=== PATIENT | female | born 1985 | race American Indian/Alaskan Native ===

== ENCOUNTER 2016-08-25 15:22 | Emergency (ER) | payer SELFPAY ==
--- NOTE | 2016-08-25 15:52 | Emergency Department Report ---
Chief Complaint: Allergic Reaction Stated Complaint: SEVERE ALLERGIC REACTION Time Seen by Provider: 08/25/16 15:48 - HPI History of Present Illness: pt c/o L upper eye lid swelling, nasal congestion and throat irritation since yesterday. pt states she thinks she is having an allergic reaction - ROS Review of Systems: + throat irritation + eye lid pain and swelling - Exam Physical Exam: Pt's R upper eye lid with erythema and edema no airway obstruction, no tonsilar erythema or exudate MSE screening note: Focused history and physical exam performed. Due to findings the following was ordered: ED Disposition for MSE Condition: Stable
[2016-08-25] MEDS ORDERED: TETRACAINE 0.5% OU PRN (20:29)
[2016-08-25] MEDS ORDERED: FUL-GLO OP ONE (20:29)
--- NOTE | 2016-08-25 20:57 | Emergency Department Report ---
ED Eye Problem HPI - General Chief complaint: Skin/Abscess/Foreign Body Stated complaint: SEVERE ALLERGIC REACTION Time Seen by Provider: 08/25/16 15:48 Source: patient Mode of arrival: Ambulatory Limitations: No Limitations - History of Present Illness Initial comments: This is a 30-year-old female well-nourished with nontoxic or ill in appearance that presented to the ED cleaning of left upper eyelid swelling 1 day. Patient states she believes she may have an allergic reaction to an unknown source. Patient also complains of cough or runny nose. Patient stated has been putting warm compressors. Patient denies any trauma, eye pain, crusting, eye discharge, blurry vision, visual changes, headache, stiff neck, fever, chills, CP, or SOB. Patient denies any allergies. Denies PMH. chief complaint: other (left upper eyelid swelling) -: Gradual, days(s) (1) Onset Description: gradual Location: left eye Place: home If Injury: none Severity: mild Consistency: constant Associated Symptoms: none. denies: headache, neck pain, nausea/vomiting, cough , rhinorrhea, fever, shortness of breath - Related Data Home Medications Medication Instructions Recorded Confirmed Last Taken Albuterol Sulfate [Ventolin HFA] 2 puff IH Q4H PRN 10/23/15 10/23/15 Unknown Magnesium Oxide [Mag-Ox] 400 mg PO QDAY 10/23/15 10/23/15 Unknown predniSONE [Deltasone] 20 mg PO QDAY 10/23/15 10/23/15 Unknown Previous Rx's Medication Instructions Recorded Last Taken Type levETIRAcetam [Keppra TAB] 1,000 mg PO BID 30 Days 01/13/14 Unknown Rx Azithromycin(Nf)1% Ophth Soln 1 drops OS QDAY #1 bottle 08/25/16 Unknown Rx [Azasite 1% Ophth Soln] Allergies Allergy/AdvReac Type Severity Reaction Status Date / Time diphenhydramine HCl Allergy Rash Verified 02/23/15 18:37 [From Benadryl] latex Allergy Rash Verified 02/23/15 18:37 Penicillins Allergy Rash Verified 02/23/15 18:37 ED Review of Systems ROS: Stated complaint: SEVERE ALLERGIC REACTION Other details as noted in HPI Constitutional: denies: chills, fever Eyes: denies: eye pain, eye discharge, vision change ENT: denies: ear pain, throat pain Respiratory: denies: cough, shortness of breath, wheezing Cardiovascular: denies: chest pain, palpitations Endocrine: no symptoms reported Gastrointestinal: denies: abdominal pain, nausea, diarrhea Genitourinary: denies: urgency, dysuria, discharge Musculoskeletal: denies: back pain, joint swelling, arthralgia Skin: denies: rash, lesions Neurological: denies: headache, weakness, paresthesias Psychiatric: denies: anxiety, depression Hematological/Lymphatic: denies: easy bleeding, easy bruising ED Past Medical Hx - Past Medical History Previous Medical History?: Yes Hx Diabetes: No Hx Seizures: Yes Hx Asthma: Yes Hx COPD: No Additional medical history: optic neuritis. MS - Social History Smoking Status: Never Smoker Substance Use Type: None - Medications Home Medications: Home Medications Medication Instructions Recorded Confirmed Last Taken Type levETIRAcetam [Keppra TAB] 1,000 mg PO BID 30 Days 01/13/14 10/23/15 Unknown Rx Albuterol Sulfate [Ventolin HFA] 2 puff IH Q4H PRN 10/23/15 10/23/15 Unknown History Magnesium Oxide [Mag-Ox] 400 mg PO QDAY 10/23/15 10/23/15 Unknown History predniSONE [Deltasone] 20 mg PO QDAY 10/23/15 10/23/15 Unknown History Azithromycin(Nf)1% Ophth Soln 1 drops OS QDAY #1 bottle 08/25/16 Unknown Rx [Azasite 1% Ophth Soln] ED Physical Exam - General Limitations: No Limitations General appearance: alert, in no apparent distress - Head Head exam: Present: atraumatic, normocephalic, normal inspection - Eye Eye exam: Present: normal appearance, PERRL, EOMI. Absent: scleral icterus, conjunctival injection, nystagmus, periorbital swelling, periorbital tenderness Pupils: Present: normal accommodation - Expanded Eye Exam Expanded Eyelids: Normal Inspection: Left Pupils: Regular, Round: Left, Reactive: Left Sclera/Conjunctival: Normal Inspection: Left Visual acuity (R) = 20/: 13 Visual acuity (L) = 20/: 13 With correction: No - ENT ENT exam: Present: normal exam, normal orophraynx, mucous membranes moist, TM's normal bilaterally, normal external ear exam - Expanded ENT Exam Expanded Mouth exam: Present: normal external inspection, tongue normal. Absent: drooling, trismus, muffled voice, tongue elevation, laceration Teeth exam: Present: normal inspection Throat exam: Positive: normal inspection. Negative: tonsillar erythema, tonsillomegaly, tonsillar exudate, R peritonsillar mass, L peritonsillar mass - Neck Neck exam: Present: normal inspection, full ROM. Absent: tenderness, meningismus, lymphadenopathy, thyromegaly - Respiratory Respiratory exam: Present: normal lung sounds bilaterally. Absent: respiratory distress, wheezes, rales, rhonchi, stridor, chest wall tenderness, accessory muscle use, decreased breath sounds, prolonged expiratory - Cardiovascular Cardiovascular Exam: Present: regular rate, normal rhythm, normal heart sounds. Absent: bradycardia, tachycardia, irregular rhythm, systolic murmur, diastolic murmur, rubs, gallop - GI/Abdominal GI/Abdominal exam: Present: soft, normal bowel sounds. Absent: distended, tenderness, guarding, rebound, rigid - Rectal Rectal exam: Present: deferred - Extremities Exam Extremities exam: Present: normal inspection, full ROM, normal capillary refill. Absent: tenderness, pedal edema, joint swelling, calf tenderness - Back Exam Back exam: Present: normal inspection, full ROM. Absent: tenderness, CVA tenderness (R), CVA tenderness (L), muscle spasm, paraspinal tenderness, vertebral tenderness, rash noted - Neurological Exam Neurological exam: Present: alert, oriented X3, CN II-XII intact, normal gait, reflexes normal - Psychiatric Psychiatric exam: Present: normal affect, normal mood - Skin Skin exam: Present: warm, dry, intact, normal color. Absent: rash - Other Other exam information: Upon using benavidez lamp, negative for corneal abrasion or foreign body. ED Course Vital Signs 08/25/16 15:48 Temperature 99.8 F H Pulse Rate 98 H Respiratory 18 Rate Blood Pressure 136/98 O2 Sat by Pulse 100 Oximetry - Reevaluation(s) Reevaluation #1: 08/25/16 20:59 Patient is able to speak in full sentences with no signs of distress noted. ED Medical Decision Making - Medical Decision Making ED course; this is a 30-year-old female that presents with left blepharitis 1- patient was examined by myself. Upon using wood lamp, no corneal abrasion or foreign body present. 2- patient received information on blepharitis and patient was instructed to use warm compresses. 3- patient also received azithromycin optic at discharge. 4- patient was referred to screedman/laborer in 3-5 days or if symptoms worsen return to emergency room as soon as possible. 5- at time time of discharge, the patient does not seem toxic or ill in appearance. No acute signs of distress noted. Patient agrees to discharge treatment plan of care. No further questions noted by the patient. Critical care attestation.: If time is entered above; I have spent that time in minutes in the direct care of this critically ill patient, excluding procedure time. ED Disposition Clinical Impression: Blepharitis Qualifiers: Blepharitis type: unspecified type Laterality: left Eyelid: upper Qualified Code(s): H01.004 - Unspecified blepharitis left upper eyelid Disposition: DC-01 TO HOME OR SELFCARE Is pt being admited?: No Does the pt Need Aspirin: No Condition: Stable Instructions: Blepharitis (ED), Azithromycin (Into the eye) Additional Instructions: Use warm compressors as much as possible. follow-up with screedman/laborer in 3-5 days or if symptoms worsen return to emergency room as soon as possible. Take full course of antibiotics as prescribed. Prescriptions: Azithromycin(Nf)1% Ophth Soln [Azasite 1% Ophth Soln] 1 drops OS QDAY #1 bottle Referrals: PRIMARY MD PRATIMA [Primary Care Provider] - 3-5 Days BEST CHEN MD [Referring] - 3-5 Days [facility] [Outside] - 3-5 Days [facility] [Outside] - 3-5 Days Forms: Work/School Release Form(ED)
[2016-08-25] MEDS ORDERED: TETRACAINE 0.5% OU ONE (20:59)
[2016-08-25 22:00] VITALS: BP 135/88
== END 2016-08-25 22:01 | disposition home or self-care (01) ==
LOC: ED 15:22
DX: H01.004 Unspecified blepharitis left upper eyelid (principal); Y92.9 Unspecified place or not applicable; J45.909 Unspecified asthma, uncomplicated
CPT/HCPCS: 99283

== ENCOUNTER 2017-11-30 17:00 | Emergency (ER) | payer MEDICARE ==
[2017-11-30] MEDS ORDERED: PERCOCET 5/325 PO ONE (21:02)
--- NOTE | 2017-11-30 21:04 | Emergency Department Report ---
ED General Adult HPI - General Chief complaint: Pain General Stated complaint: MS FLARE,N/V Time Seen by Provider: 11/30/17 20:51 Source: patient, RN notes reviewed, old records reviewed Mode of arrival: Ambulatory Limitations: Physical Limitation - History of Present Illness Initial comments: This is a 32-year-old female who is known to this provider previously. She is currently transitioning neurology specialist. Past medical history includes multiple sclerosis, and has been documented to have required chronic steroids but also be noncompliant, epilepsy and asthma. Patient resents to the ER with 5 weeks of burning left-sided leg pain, and increased left-sided leg weakness. The symptoms to make going on for 5 weeks. They're constant. Pain increases with palpation and range of motion. They decrease with rest. She reports no bladder or bowel retention or incontinence, denies saddle anesthesia, denies cough, urinary symptoms. Patient describes her pain as burning achy and sharp, reports that it feels somewhat to prior episodes of multiple sclerosis flare and exacerbation. The patient further reports no headache, neck pain, chest pain, abdominal pain, or shortness of breath. Patient reports being seen at [facility] recently, and was given outpatient medications, can't recall what she was given. Of note, patient had MRI of the lumbar spine at this facility last year for similar symptoms, which was essentially unremarkable. -: Gradual, week(s) Location: left, lower extremity Radiation: extremity Quality: burning, stabbing, aching Consistency: constant Improves with: rest Worsens with: medication Associated Symptoms: weakness. denies: confusion, chest pain, cough, diaphoresis, fever/chills, headaches, loss of appetite, malaise, nausea/vomiting , rash, seizure, shortness of breath, syncope - Related Data Home Medications Medication Instructions Recorded Confirmed Last Taken Albuterol Sulfate [Ventolin HFA] 2 puff IH Q4H PRN 10/23/15 12/16/16 Unknown Magnesium Oxide [Mag-Ox] 400 mg PO QDAY 10/23/15 12/16/16 Unknown Previous Rx's Medication Instructions Recorded Last Taken Type Azithromycin(Nf)1% Ophth Soln 1 drops OS QDAY #1 bottle 08/25/16 Unknown Rx [Azasite 1% Ophth Soln] predniSONE [Deltasone] 20 mg PO QDAY #30 12/18/16 12/04/16 Rx predniSONE [Deltasone] 20 mg PO QDAY 30 Days tab 12/18/16 Unknown Rx Acetaminophen [Tylenol Arthritis] 650 mg PO Q6HR PRN #30 tablet.er 11/30/17 Unknown Rx Ibuprofen [Motrin] 600 mg PO Q8H PRN #30 tablet 11/30/17 Unknown Rx levETIRAcetam [Keppra TAB] 1,000 mg PO BID 30 Days #60 tablet 11/30/17 Unknown Rx Allergies Allergy/AdvReac Type Severity Reaction Status Date / Time diphenhydramine HCl Allergy Rash Verified 02/23/15 18:37 [From Benadryl] latex Allergy Rash Verified 02/23/15 18:37 Penicillins Allergy Rash Verified 02/23/15 18:37 ED Review of Systems ROS: Stated complaint: MS FLARE,N/V Other details as noted in HPI Constitutional: malaise. denies: fever Eyes: denies: eye discharge ENT: denies: epistaxis Respiratory: denies: cough Cardiovascular: denies: chest pain Gastrointestinal: denies: abdominal pain Genitourinary: denies: dysuria Musculoskeletal: arthralgia, myalgia. denies: back pain Neurological: weakness, numbness, paresthesias Psychiatric: denies: anxiety ED Past Medical Hx - Past Medical History Hx Diabetes: No Hx Seizures: Yes Hx Asthma: Yes Hx COPD: No Additional medical history: optic neuritis. MS - Social History Smoking Status: Never Smoker Substance Use Type: None - Medications Home Medications: Home Medications Medication Instructions Recorded Confirmed Last Taken Type Albuterol Sulfate [Ventolin HFA] 2 puff IH Q4H PRN 10/23/15 12/16/16 Unknown History Magnesium Oxide [Mag-Ox] 400 mg PO QDAY 10/23/15 12/16/16 Unknown History Azithromycin(Nf)1% Ophth Soln 1 drops OS QDAY #1 bottle 08/25/16 12/16/16 Unknown Rx [Azasite 1% Ophth Soln] predniSONE [Deltasone] 20 mg PO QDAY #30 12/18/16 12/16/16 12/04/16 Rx predniSONE [Deltasone] 20 mg PO QDAY 30 Days tab 12/18/16 Unknown Rx Acetaminophen [Tylenol Arthritis] 650 mg PO Q6HR PRN #30 tablet.er 11/30/17 Unknown Rx Ibuprofen [Motrin] 600 mg PO Q8H PRN #30 tablet 11/30/17 Unknown Rx levETIRAcetam [Keppra TAB] 1,000 mg PO BID 30 Days #60 tablet 11/30/17 Unknown Rx ED Physical Exam - General Limitations: No Limitations General appearance: alert, in no apparent distress - Head Head exam: Present: atraumatic, normocephalic - Eye Eye exam: Present: normal appearance, EOMI. Absent: nystagmus - ENT ENT exam: Present: normal exam, normal orophraynx, mucous membranes moist, normal external ear exam - Neck Neck exam: Present: normal inspection, full ROM - Respiratory Respiratory exam: Present: normal lung sounds bilaterally. Absent: respiratory distress - Cardiovascular Cardiovascular Exam: Present: regular rate, normal rhythm, normal heart sounds. Absent: bradycardia, tachycardia, systolic murmur, diastolic murmur, rubs, gallop - GI/Abdominal GI/Abdominal exam: Present: soft, normal bowel sounds. Absent: distended, tenderness, guarding, rebound, rigid, pulsatile mass - Extremities Exam Extremities exam: Present: normal inspection, full ROM, tenderness, normal capillary refill, other (2+ pulses noted in the bilateral upper, lower extremities. There is no redness, pus, streaking in the upper or lower extremities. The muscular compartments are soft. The left lower extremity is tender in the muscular compartments. A compartments are soft.). Absent: calf tenderness - Back Exam Back exam: Present: normal inspection, full ROM. Absent: tenderness, CVA tenderness (R), paraspinal tenderness, vertebral tenderness - Neurological Exam Neurological exam: Present: alert, oriented X3, abnormal gait (patient walks with a slight limp, but is able to weight-bear), motor sensory deficit (patient has a 3.5/5 strength in the left lower extremity. She has increased pain sensation, and decreased sensation to light touch in the left lower extremity. Reports proprioception is intact in the bilateral lower extremity. 5 out of 5 strength in the bilateral upper extremities and right lower extremity. 2+ quadriceps reflexes noted in the bilateral lower extremities. Downgoing plantar reflexes noted in the bilateral lower extremities) - Psychiatric Psychiatric exam: Present: normal affect, normal mood - Skin Skin exam: Present: warm, dry, intact, normal color. Absent: rash ED Course Vital Signs 11/30/17 11/30/17 17:19 21:18 Temperature 98.7 F 98.3 F Pulse Rate 74 75 Respiratory 16 14 Rate Blood Pressure 159/95 Blood Pressure 133/81 [Left] O2 Sat by Pulse 99 98 Oximetry - Reevaluation(s) Reevaluation #1: 11/30/17 21:12 Differential diagnosis, including but not limited to: Neuropathic pain, myositis , multiple sclerosis flare/exacerbation, urinary tract infection Assessment and plan: 32-year-old female with probable multiple sclerosis flare/ exacerbation. Reports symptoms have been going on for weeks. Her muscular examination physical exam do not suggest compartment syndrome or cellulitis. She has no back pain, and has no bladder or bowel retention, incontinence. Had negative MRI of the lumbar spine last year. We will discuss with neurology contract clerk automobile at [facility]. Reevaluation #2: 11/30/17 21:22 Case is discussed with neurology contract clerk automobile, Dr. Loja. He recommends that since patient's symptoms have been going on for such a long period of time she is not likely to benefit from steroid therapy. I go back to reassess the patient and she is speaking on a cell phone. Patient reports she was at [facility] 2-3 weeks ago, and can't recall a prescription she was given. She further indicates that she didn't get her prescriptions filled. Dr. Loja does not recommend any additional interventions at this time, and recommends outpatient follow-up. Given the patient's symptoms have been going on for weeks, given that she does not require inpatient admission for medical management, the patient will be discharged with instructions to follow up with outpatient neurology. She specifically given the phone number for Dr. Loja's neurology clinic; patient is walking with a slight limp. Reevaluation #3: 11/30/17 21:55 Patient on cellphone. Laboratory studies urinalysis unremarkable. Vital signs stable. Patient will be discharged. ED Medical Decision Making - Lab Data Result diagrams: 11/30/17 21:09 11/30/17 21:09 Vital Signs - 24 hr 11/30/17 17:19 Temperature 98.7 F Pulse Rate 74 Respiratory 16 Rate Blood Pressure 159/95 O2 Sat by Pulse 99 Oximetry Critical care attestation.: If time is entered above; I have spent that time in minutes in the direct care of this critically ill patient, excluding procedure time. ED Disposition Clinical Impression: History of multiple sclerosis Disposition: DC-01 TO HOME OR SELFCARE Is pt being admited?: No Does the pt Need Aspirin: No Condition: Good Additional Instructions: Take the medications as directed. Follow up with a neurologist within the next 7-14 days. Patient may contact the [facility] neurology department at [phone] range outpatient follow-up, or patient may follow-up with any other illicit neurology specialist. Take the pain medications as needed as directed. Return to the ER right away with fevers, chills, lethargy, irritability, projectile vomiting, change in mental status, confusion, inability to tolerate liquid feeds , new, worsening or different weakness. Prescriptions: Acetaminophen [Tylenol Arthritis] 650 mg PO Q6HR PRN #30 tablet.er PRN Reason: Pain Ibuprofen [Motrin] 600 mg PO Q8H PRN #30 tablet PRN Reason: Pain levETIRAcetam [Keppra TAB] 1,000 mg PO BID 30 Days #60 tablet Referrals: HO ANDUJAR MD [Primary Care Provider] - 3-5 Days FLAVIO SILVER MD [Referring] - 3-5 Days MICHAEL VERDUZCO MD [Staff Physician] - 3-5 Days ML MENDOZA MD [Staff Physician] - 3-5 Days
[2017-11-30 21:21] LABS: Hematocrit 41.3 % (30.3-42.9); Hemoglobin 14.1 gm/dl (10.1-14.3); Mean Corpuscular HGB Conc 34 % (30-34); Mean Corpuscular Hemoglobin 32 pg (28-32); Mean Corpuscular Volume 92 fl (79-97); Platelet Count 370 K/mm3 (140-440); Red Blood Count 4.47 M/mm3 (3.65-5.03); Red Cell Distribution Width 12.5 % (13.2-15.2)
[2017-11-30 21:41] LABS: BUN/Creatinine Ratio 23; Blood Urea Nitrogen 14 mg/dL (7-17); Calcium 9.3 mg/dL (8.4-10.2); Hemolysis Index 7
[2017-11-30 21:50] LABS: Bilirubin,Urine NEG (Negative); Blood,Urine NEG (Negative); Color,Urine Yellow (Yellow); Mucus,Urine FEW /HPF; Protein,Urine <15 mg/dL mg/dL (Negative); Urobilinogen,Urine < 2.0 mg/dL (<2.0)
[2017-11-30 22:33] VITALS: BP 126/75
== END 2017-11-30 22:20 | disposition home or self-care (01) ==
LOC: ED 17:00
DX: G35 Multiple sclerosis (principal); J45.909 Unspecified asthma, uncomplicated; G40.909 Epilepsy, unspecified, not intractable, without status epilepticus; Z88.1 Allergy status to other antibiotic agents; Z91.040 Latex allergy status; Z88.0 Allergy status to penicillin
CPT/HCPCS: 36415; 51701; 80048; 81001; 82550; 84702; 85027; 99283

== ENCOUNTER 2018-03-03 08:25 | Emergency (ER) | payer MEDICARE ==
[2018-03-03 08:32] VITALS: BP 137/85
--- NOTE | 2018-03-03 08:50 | Emergency Department Report ---
ED General Adult HPI - General Chief complaint: Upper Respiratory Infection Stated complaint: FLU LIKE Time Seen by Provider: 03/03/18 08:39 Source: patient Mode of arrival: Ambulatory Limitations: No Limitations - History of Present Illness Initial comments: Ms. Lee is a 32 yo female with hx of MS who presents with fever, nausea, nasal congestion, fatigue, productive cough and muscle aches for one week. The diffuse pain is concerning to her for an MS flare. Moderately severe pain. OTC meds did not provided any relief. Neurologist Dr. Moore -: Gradual, week(s) (1) Location: back, upper extremity, lower extremity Severity scale (0 -10): 6 Quality: aching Consistency: constant Improves with: none Worsens with: none Associated Symptoms: cough, fever/chills, malaise - Related Data Home Medications Medication Instructions Recorded Confirmed Last Taken Albuterol Sulfate [Ventolin HFA] 2 puff IH Q4H PRN 10/23/15 12/16/16 Unknown Magnesium Oxide [Mag-Ox] 400 mg PO QDAY 10/23/15 12/16/16 Unknown Previous Rx's Medication Instructions Recorded Last Taken Type Azithromycin(Nf)1% Ophth Soln 1 drops OS QDAY #1 bottle 08/25/16 Unknown Rx [Azasite 1% Ophth Soln] predniSONE [Deltasone] 20 mg PO QDAY #30 12/18/16 12/04/16 Rx predniSONE [Deltasone] 20 mg PO QDAY 30 Days tab 12/18/16 Unknown Rx Acetaminophen [Tylenol Arthritis] 650 mg PO Q6HR PRN #30 tablet.er 11/30/17 Unknown Rx Ibuprofen [Motrin] 600 mg PO Q8H PRN #30 tablet 11/30/17 Unknown Rx levETIRAcetam [Keppra TAB] 1,000 mg PO BID 30 Days #60 tablet 11/30/17 Unknown Rx Acetaminophen/Codeine [Tylenol 1 tab PO Q6H PRN #24 tab 12/29/17 Unknown Rx /Codeine # 3 tab] Ondansetron [Zofran Odt] 4 mg PO Q6HR PRN #12 tab.rapdis 12/29/17 Unknown Rx Acetaminophen/Codeine [Tylenol 2 tab PO Q6H PRN #16 tab 03/03/18 Unknown Rx /Codeine # 3 tab] Azithromycin [Zithromax Z-MARIO] 250 mg PO DAILY #6 tablet 03/03/18 Unknown Rx Allergies Allergy/AdvReac Type Severity Reaction Status Date / Time diphenhydramine HCl Allergy Rash Verified 03/03/18 08:29 [From Benadryl] latex Allergy Rash Verified 03/03/18 08:29 Penicillins Allergy Rash Verified 03/03/18 08:29 ED Review of Systems ROS: Stated complaint: FLU LIKE Other details as noted in HPI Comment: All other systems reviewed and negative Constitutional: chills, fever, malaise ENT: congestion Respiratory: cough ED Past Medical Hx - Past Medical History Previous Medical History?: Yes Hx Diabetes: No Hx Seizures: Yes Hx Asthma: Yes Hx COPD: No Additional medical history: optic neuritis. MS - Social History Smoking Status: Never Smoker Substance Use Type: None - Medications Home Medications: Home Medications Medication Instructions Recorded Confirmed Last Taken Type Albuterol Sulfate [Ventolin HFA] 2 puff IH Q4H PRN 10/23/15 12/16/16 Unknown History Magnesium Oxide [Mag-Ox] 400 mg PO QDAY 10/23/15 12/16/16 Unknown History Azithromycin(Nf)1% Ophth Soln 1 drops OS QDAY #1 bottle 08/25/16 12/16/16 Unknown Rx [Azasite 1% Ophth Soln] predniSONE [Deltasone] 20 mg PO QDAY #30 12/18/16 12/16/16 12/04/16 Rx predniSONE [Deltasone] 20 mg PO QDAY 30 Days tab 12/18/16 Unknown Rx Acetaminophen [Tylenol Arthritis] 650 mg PO Q6HR PRN #30 tablet.er 11/30/17 Unknown Rx Ibuprofen [Motrin] 600 mg PO Q8H PRN #30 tablet 11/30/17 Unknown Rx levETIRAcetam [Keppra TAB] 1,000 mg PO BID 30 Days #60 tablet 11/30/17 Unknown Rx Acetaminophen/Codeine [Tylenol 1 tab PO Q6H PRN #24 tab 12/29/17 Unknown Rx /Codeine # 3 tab] Ondansetron [Zofran Odt] 4 mg PO Q6HR PRN #12 tab.rapdis 12/29/17 Unknown Rx Acetaminophen/Codeine [Tylenol 2 tab PO Q6H PRN #16 tab 03/03/18 Unknown Rx /Codeine # 3 tab] Azithromycin [Zithromax Z-MARIO] 250 mg PO DAILY #6 tablet 03/03/18 Unknown Rx ED Physical Exam - General Limitations: No Limitations General appearance: alert, in no apparent distress - Head Head exam: Present: atraumatic, normocephalic - Eye Eye exam: Present: normal appearance - ENT ENT exam: Present: normal orophraynx, mucous membranes moist, other (nasal congestion) - Neck Neck exam: Present: normal inspection - Respiratory Respiratory exam: Present: normal lung sounds bilaterally. Absent: respiratory distress, wheezes, rales, rhonchi - Cardiovascular Cardiovascular Exam: Present: regular rate, normal rhythm. Absent: systolic murmur, diastolic murmur, rubs, gallop - GI/Abdominal GI/Abdominal exam: Present: soft, normal bowel sounds. Absent: distended, tenderness, guarding, rebound - Extremities Exam Extremities exam: Present: normal inspection - Back Exam Back exam: Present: normal inspection - Neurological Exam Neurological exam: Present: alert, oriented X3 - Psychiatric Psychiatric exam: Present: normal affect, normal mood - Skin Skin exam: Present: warm, dry, intact, normal color. Absent: rash ED Course Vital Signs 03/03/18 08:29 Temperature 97.6 F Pulse Rate 101 H Respiratory 20 Rate Blood Pressure 137/85 O2 Sat by Pulse 97 Oximetry ED Medical Decision Making - Medical Decision Making Dx: influenza, tamiflu not indicated considering duration of symptoms. Due to productive cough, hx os asthma and MS, I feel she would benefit from course of antibiotics, RX: azithromycin and tylenol #3 She will see her neurologist Dr. Moore today. Critical care attestation.: If time is entered above; I have spent that time in minutes in the direct care of this critically ill patient, excluding procedure time. ED Disposition Clinical Impression: Influenza Disposition: DC-01 TO HOME OR SELFCARE Is pt being admited?: No Does the pt Need Aspirin: No Condition: Stable Instructions: Influenza (ED) Prescriptions: Acetaminophen/Codeine [Tylenol /Codeine # 3 tab] 2 tab PO Q6H PRN #16 tab PRN Reason: pain or cough Azithromycin [Zithromax Z-MARIO] 250 mg PO DAILY #6 tablet
== END 2018-03-03 09:03 | disposition home or self-care (01) ==
LOC: ED 08:25
DX: J11.1 Influenza due to unidentified influenza virus with other respiratory manifestations (principal)
CPT/HCPCS: 99282

== ENCOUNTER 2018-06-09 09:43 | Emergency (ER) | payer MEDICARE ==
[2018-06-09] MEDS ORDERED: NACL 0.9% 1000 ML 1,000 ML IV ONE (10:12)
[2018-06-09] MEDS ORDERED: ZOFRAN IV ONE (10:12)
[2018-06-09 10:33] LABS: Basophils % (Auto) 0.1 % (0.0-1.8); Eosinophils % (Auto) 0.2 % (0.0-4.3); Hematocrit 41.5 % (30.3-42.9); Hemoglobin 14.8 gm/dl (10.1-14.3); Lymphocytes # (Auto) 0.6 K/mm3 (1.2-5.4); Lymphocytes % (Auto) 8.8 % (13.4-35.0); Mean Corpuscular HGB Conc 36 % (30-34); Mean Corpuscular Volume 92 fl (79-97); Monocytes # (Auto) 0.4 K/mm3 (0.0-0.8); Monocytes % (Auto) 5.8 % (0.0-7.3); Platelet Count 292 K/mm3 (140-440); Red Blood Count 4.53 M/mm3 (3.65-5.03); Red Cell Distribution Width 12.4 % (13.2-15.2)
--- NOTE | 2018-06-09 11:02 | Emergency Department Report ---
Vomiting/Diarrhea - HPI Chief Complaint: Nausea/Vomiting/Diarrhea Stated Complaint: VOMITING/DIARRHEA/ABD PAIN Time Seen by Provider: 06/09/18 10:12 Duration: 4 Days Severity: mild Nausea/Vomiting Severity: Mild Diarrhea Severity: Mild Pain Severity: Mild Symptoms: Yes Watery Diarrhea, Yes Able to Tolerate Fluids, No Bloody diarrhea, No Fever, No Recent Unusual Foods, No Recent Untreated Water, No Recent use of Antibiotics, No Family w/ Similar Symptoms, No Contacts w/ Similar Symptoms, No Rash, No Hematuria, No Recent URI Symptoms Other History: Patient is a 32-year-old female presents to the ER with a 4 day history of nausea vomiting diarrhea. She has a history of MS. She sees the [facility]. She is on Keppra, prednisone and another medication that she does not recall the name of. Patient is ambulatory to the ER. She has a implant for control. ED Review of Systems ROS: Stated complaint: VOMITING/DIARRHEA/ABD PAIN Other details as noted in HPI Comment: All other systems reviewed and negative ED Past Medical Hx - Past Medical History Previous Medical History?: Yes Hx Diabetes: No Hx Seizures: Yes Hx Asthma: Yes Hx COPD: No Additional medical history: optic neuritis. MS - Surgical History Past Surgical History?: No - Family History Family history: no significant - Social History Smoking Status: Never Smoker Substance Use Type: None - Medications Home Medications: Home Medications Medication Instructions Recorded Confirmed Last Taken Type levETIRAcetam [Keppra TAB] 1,000 mg PO BID 30 Days #60 tablet 11/30/17 Unknown Rx Ondansetron [Zofran Odt] 4 mg PO Q8HR PRN #10 tab.rapdis 06/09/18 Unknown Rx Vomiting Diarrhea Exam - Exam General: Vital signs noted. No distress. Alert and acting appropriately. HEENT: Yes Moist Mucous Membranes, No Pharyngeal Erythema, No Pharyngeal Exudates, No Rhinorrhea, No Conjuctival Injection, No Frontal Tenderness, No Maxillary Tenderness Neck: No Adenopathy, No Rigidity Lungs: Yes Clear Lung Sounds, Yes Good Air Exchange, No Wheezes, No Stridor, No Cough, No Nasal Flaring, No Retractions, No Use of Accessory Muscles Heart exam: Regular: Yes, Murmur: No, Tachycardia: No Abdomen: Tenderness: No, Peritoneal Signs: No, Distention: No, Hyperactive Bowel sounds: No Skin exam: Rash: No, Edema: No, Normal turgor: Yes Neurologic: Alert and oriented, no deficits. Musculoskeletal: Unremarkable. ED Course Vital Signs 06/09/18 06/09/18 09:54 10:19 Temperature 98.1 F Pulse Rate 95 H Respiratory 16 15 Rate Blood Pressure 134/83 O2 Sat by Pulse 98 Oximetry ED Medical Decision Making - Lab Data Result diagrams: 06/09/18 10:18 06/09/18 10:18 - Radiology Data Radiology results: report reviewed, image reviewed - Medical Decision Making labs noted ua noted tbili inc RUQ us noted given pts history vss taking po and ambulatory on discharge from ER. 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 Vital Signs 06/09/18 06/09/18 09:54 10:19 Temperature 98.1 F Pulse Rate 95 H Respiratory 16 15 Rate Blood Pressure 134/83 O2 Sat by Pulse 98 Oximetry Labs 06/09/18 06/09/18 06/09/18 10:18 10:18 10:18 WBC 6.5 RBC 4.53 Hgb 14.8 H Hct 41.5 MCV 92 MCH 33 H MCHC 36 H RDW 12.4 L Plt Count 292 Lymph % (Auto) 8.8 L Titus % (Auto) 5.8 Eos % (Auto) 0.2 Baso % (Auto) 0.1 Lymph # 0.6 L Titus # 0.4 Eos # 0.0 Baso # 0.0 Seg Neutrophils % 85.1 H Seg Neutrophils # 5.6 Sodium 137 Potassium 4.6 Chloride 98.9 Carbon Dioxide 27 Anion Gap 16 BUN 13 Creatinine 0.8 Estimated GFR > 60 BUN/Creatinine Ratio 16 Glucose 101 H Calcium 9.4 Total Bilirubin 1.60 H AST 13 ALT 14 Alkaline Phosphatase 61 Total Protein 6.7 Albumin 4.3 Albumin/Globulin Ratio 1.8 Lipase 18 Urine Color Urine Turbidity Urine pH Ur Specific Galva Urine Protein Urine Glucose (UA) Urine Ketones Urine Blood Urine Nitrite Urine Bilirubin Urine Urobilinogen Ur Leukocyte Esterase Urine WBC (Auto) Urine RBC (Auto) U Epithel Cells (Auto) Urine Mucus Urine HCG, Qual 06/09/18 11:58 WBC RBC Hgb Hct MCV MCH MCHC RDW Plt Count Lymph % (Auto) Titus % (Auto) Eos % (Auto) Baso % (Auto) Lymph # Titus # Eos # Baso # Seg Neutrophils % Seg Neutrophils # Sodium Potassium Chloride Carbon Dioxide Anion Gap BUN Creatinine Estimated GFR BUN/Creatinine Ratio Glucose Calcium Total Bilirubin AST ALT Alkaline Phosphatase Total Protein Albumin Albumin/Globulin Ratio Lipase Urine Color Yellow Urine Turbidity Slightly-cloudy Urine pH 6.0 Ur Specific Galva 1.028 Urine Protein <15 mg/dl Urine Glucose (UA) Neg Urine Ketones Neg Urine Blood Neg Urine Nitrite Neg Urine Bilirubin Neg Urine Urobilinogen 2.0 Ur Leukocyte Esterase Neg Urine WBC (Auto) 1.0 Urine RBC (Auto) 2.0 U Epithel Cells (Auto) 6.0 Urine Mucus 2+ Urine HCG, Qual Negative Critical care attestation.: If time is entered above; I have spent that time in minutes in the direct care of this critically ill patient, excluding procedure time. ED Disposition Clinical Impression: Gastroenteritis, Multiple sclerosis Disposition: DC- TO HOME OR SELFCARE Is pt being admited?: No Does the pt Need Aspirin: No Condition: Stable Instructions: Gastroenteritis (ED) Additional Instructions: DIET TOLERATED MEDS ORDERED TODAY IN ER FOLLOW INSTRUCTIONS ON THE BOTTLE FOLLOW UP PCP WITHIN 48 HOURS TO ENSURE YOU ARE GETTING BETTER ACTIVITY TOLERATED MOTRIN OR TYLENOL FOR PAIN OR FEVER RETURN TO THE ER FOR WORSENING SYMPTOMS NOT RELIEVED BY YOUR MEDICATIONS. FOLLOW UP WITH NEURO IN AM Prescriptions: Ondansetron [Zofran Odt] 4 mg PO Q8HR PRN #10 tab.rapdis PRN Reason: Vomiting Referrals: PRIMARY CARE, [Primary Care Provider] - 3-5 Days Time of Disposition: 11:27
[2018-06-09 11:13] LABS: Alanine Aminotransferase 14 units/L (7-56); Albumin 4.3 g/dL (3.9-5); BUN/Creatinine Ratio 16; Blood Urea Nitrogen 13 mg/dL (7-17); Calcium 9.4 mg/dL (8.4-10.2); Hemolysis Index 6
[2018-06-09 12:38] LABS: Bilirubin,Urine NEG (Negative); Blood,Urine NEG (Negative); Color,Urine Yellow (Yellow); Mucus,Urine 2+ /HPF; Protein,Urine <15 mg/dL mg/dL (Negative)
[2018-06-09 12:42] LABS: HCG Qualitative,Urine Negative (Negative)
--- NOTE | 2018-06-09 14:22 | Ultrasound Report ---
ULTRASOUND ABDOMEN LIMITED INDICATION: Nausea and vomiting. COMPARISON: None similar. FINDINGS: Right upper quadrant ultrasound demonstrates unremarkable liver. No gallstones or pericholecystic fluid. Gallbladder wall thickness is 1.3 mm. Negative sonographic Mitchell's sign. Common bile duct is 1.4 mm. Imaged pancreas, nonaneurysmal abdominal aorta and IVC within normal limits. Nonhydronephrotic 11 x 5 x 5.3 cm right kidney with cortical thickness of 1.5 cm. Top normal/borderline increased renal cortical echogenicity not excluded. CONCLUSION: No acute right upper quadrant abnormality with subtle underlying medical renal disease not entirely excluded sonographically in an appropriate setting, as described. Please correlate. Thank you for the opportunity to participate in this patient's care.
[2018-06-09 15:00] VITALS: BP 129/78
== END 2018-06-09 14:58 | disposition home or self-care (01) ==
LOC: ED 09:43
DX: K52.9 Noninfective gastroenteritis and colitis, unspecified (principal); G35 Multiple sclerosis; J45.909 Unspecified asthma, uncomplicated; Z88.0 Allergy status to penicillin; Z88.8 Allergy status to other drugs, medicaments and biological substances; Z91.040 Latex allergy status
CPT/HCPCS: 36415; 76705; 80053; 81001; 81025; 83690; 85025; 96361; 96374; 99284; J2405; J7030

== ENCOUNTER 2018-08-23 09:46 | Emergency (ER) | payer MEDICARE ==
--- NOTE | 2018-08-23 10:32 | Event Note ---
ED Screening Note ED Screening Note: Pt of Dr Henson she saw him last month he ordered MRI because of something on exam- shes waiting for appnt date she was referred to [facility] and is waiting for that referral Last flare 11/26- hosp 8 days PMH MS OPTIC NEURITIS ASTHMA SZ FROM MS this is pts usual MS flare. co leg pain and tremor rue. LMP- implant, does not have menses rx prednisone and keppra--she is taking these OFF her MS med (cant recall name) and IV solumedrol that RN comes to give her--- last had in 03/30 This initial assessment/diagnostic orders/clinical plan/treatment(s) is/are subject to change based on patients health status, clinical progression and re- assessment by fellow clinical providers in the ED. Further treatment and workup at subsequent clinical providers discretion. Patient/guardian urged not to elope from the ED as their condition may be serious if not clinically assessed and managed. Initial orders include: LABS UA/PREG TO MAIN ED
[2018-08-23 10:55] LABS: Hematocrit 40.6 % (30.3-42.9); Hemoglobin 14.2 gm/dl (10.1-14.3); Mean Corpuscular HGB Conc 35 % (30-34); Mean Corpuscular Volume 92 fl (79-97); Platelet Count 306 K/mm3 (140-440); Red Blood Count 4.42 M/mm3 (3.65-5.03); Red Cell Distribution Width 12.4 % (13.2-15.2)
[2018-08-23] MEDS ORDERED: SOLU-Medrol IV ONE (10:56)
[2018-08-23] MEDS ORDERED: NACL 0.9% 1000 ML 1,000 ML IV ONE (10:56)
[2018-08-23] MEDS ORDERED: MORPHINE IV ONE (10:56)
--- NOTE | 2018-08-23 11:07 | Emergency Department Report ---
ED General Adult HPI - General Chief complaint: Weakness Stated complaint: LEGS PAIN/THROAT SORE/PAIN Time Seen by Provider: 08/23/18 10:41 Source: patient Mode of arrival: Ambulatory Limitations: No Limitations - History of Present Illness Initial comments: 32-year-old female presents to ED with suspected exacerbation of multiple sclerosis. Patient reports pain to bilateral legs 2 days. Patient states this is consistent with her usual MS flare. She reports pain to the bottom of her feet with walking. Patient also says she awoke this morning with a sore throat. Denies fever, cough. -: days(s) (3) Location: left, right, lower extremity Quality: aching Consistency: constant Improves with: none Worsens with: movement Associated Symptoms: malaise. denies: chest pain, cough, fever/chills, nausea/vomiting - Related Data Previous Rx's Medication Instructions Recorded Last Taken Type levETIRAcetam [Keppra TAB] 1,000 mg PO BID 30 Days #60 tablet 11/30/17 Unknown Rx Naproxen [Naprosyn] 500 mg PO BID #20 tablet 08/23/18 Unknown Rx oxyCODONE /ACETAMINOPHEN [Percocet 1 tab PO Q6HR PRN #10 tablet 08/23/18 Unknown Rx 5/325] predniSONE [Deltasone] 50 mg PO QDAY #5 tab 08/23/18 Unknown Rx Allergies Allergy/AdvReac Type Severity Reaction Status Date / Time diphenhydramine HCl Allergy Rash Verified 03/03/18 08:29 [From Benadryl] latex Allergy Rash Verified 03/03/18 08:29 Penicillins Allergy Rash Verified 03/03/18 08:29 ED Review of Systems ROS: Stated complaint: LEGS PAIN/THROAT SORE/PAIN Other details as noted in HPI Comment: All other systems reviewed and negative Constitutional: denies: fever ENT: throat pain Respiratory: denies: cough Cardiovascular: denies: chest pain Gastrointestinal: denies: nausea, vomiting Musculoskeletal: as per HPI Neurological: denies: headache ED Past Medical Hx - Past Medical History Previous Medical History?: Yes Hx Diabetes: No Hx Seizures: Yes Hx Asthma: Yes Hx COPD: No Additional medical history: optic neuritis. MS - Surgical History Past Surgical History?: No - Social History Smoking Status: Never Smoker Substance Use Type: None - Medications Home Medications: Home Medications Medication Instructions Recorded Confirmed Last Taken Type levETIRAcetam [Keppra TAB] 1,000 mg PO BID 30 Days #60 tablet 11/30/17 Unknown Rx Naproxen [Naprosyn] 500 mg PO BID #20 tablet 08/23/18 Unknown Rx oxyCODONE /ACETAMINOPHEN [Percocet 1 tab PO Q6HR PRN #10 tablet 08/23/18 Unknown Rx 5/325] predniSONE [Deltasone] 50 mg PO QDAY #5 tab 08/23/18 Unknown Rx ED Physical Exam - General Limitations: No Limitations General appearance: alert, in no apparent distress - Head Head exam: Present: atraumatic, normocephalic - Eye Eye exam: Present: normal appearance, PERRL, EOMI - ENT ENT exam: Present: normal orophraynx, mucous membranes moist - Neck Neck exam: Present: normal inspection. Absent: tenderness - Respiratory Respiratory exam: Present: normal lung sounds bilaterally. Absent: respiratory distress - Cardiovascular Cardiovascular Exam: Present: regular rate, normal rhythm - GI/Abdominal GI/Abdominal exam: Present: soft. Absent: distended, tenderness - Extremities Exam Extremities exam: Present: tenderness. Absent: joint swelling - Neurological Exam Neurological exam: Present: alert, oriented X3 - Psychiatric Psychiatric exam: Present: normal affect, normal mood - Skin Skin exam: Present: warm, dry, intact, normal color ED Course Vital Signs 08/23/18 08/23/18 09:54 10:09 Temperature 98.7 F Pulse Rate 88 Respiratory 15 12 Rate Blood Pressure 154/85 [Left] O2 Sat by Pulse 100 Oximetry ED Medical Decision Making - Lab Data Result diagrams: 08/23/18 10:39 08/23/18 10:39 Critical care attestation.: If time is entered above; I have spent that time in minutes in the direct care of this critically ill patient, excluding procedure time. ED Disposition Clinical Impression: Pharyngitis, Lower extremity pain Disposition: - TO HOME OR SELFCARE Is pt being admited?: No Condition: Stable Instructions: Pharyngitis (ED), Arthralgia (ED) Prescriptions: oxyCODONE /ACETAMINOPHEN [Percocet 5/325] 1 tab PO Q6HR PRN #10 tablet PRN Reason: Pain Referrals: PRIMARY CARE, [Referring] - 3-5 Days Time of Disposition: 13:13
[2018-08-23 11:16] LABS: Alanine Aminotransferase 20 units/L (7-56); Albumin 4.3 g/dL (3.9-5); BUN/Creatinine Ratio 16; Blood Urea Nitrogen 11 mg/dL (7-17); Calcium 9.6 mg/dL (8.4-10.2); Hemolysis Index 15
[2018-08-23 12:51] LABS: HCG Qualitative,Urine Negative (Negative)
[2018-08-23 12:57] LABS: Bacteria,Urine 1+ /HPF (Negative); Bilirubin,Urine NEG (Negative); Blood,Urine MOD (Negative); Color,Urine Yellow (Yellow); Mucus,Urine FEW /HPF; Protein,Urine <15 mg/dL mg/dL (Negative); Urobilinogen,Urine < 2.0 mg/dL (<2.0)
[2018-08-23 14:10] VITALS: BP 133/85
== END 2018-08-23 14:10 | disposition home or self-care (01) ==
LOC: ED 09:46
DX: J02.9 Acute pharyngitis, unspecified (principal); M79.661 Pain in right lower leg; M79.662 Pain in left lower leg; J45.909 Unspecified asthma, uncomplicated; Z88.0 Allergy status to penicillin; Z88.5 Allergy status to narcotic agent; Z91.040 Latex allergy status
CPT/HCPCS: 36415; 80053; 80177; 81001; 81025; 85027; 87116; 87430; 96374; 96375; 99283; J2270; J2930; J7030